=== PATIENT | male | born 1955 | race Caucasian/White ===

== ENCOUNTER → 2022-09-07 16:34 | Outpatient (BNVA) | payer OTHER, MEDICARE, SELFPAY | PROVIDERS: PCP Family Medicine; Visit Provider Family Medicine | DX: I10 Essential (primary) hypertension (principal); M62.838 Other muscle spasm; N52.9 Male erectile dysfunction, unspecified; Z23 Encounter for immunization; Z71.6 Tobacco abuse counseling | CPT/HCPCS: 80053; 80061; 84443; 85025 ==

== ENCOUNTER → 2023-03-10 13:00 | Outpatient (BNVA) | payer OTHER, MEDICARE, SELFPAY | PROVIDERS: PCP Family Medicine; Visit Provider Family Medicine | DX: I10 Essential (primary) hypertension (principal) | CPT/HCPCS: 80053; 80061; 84443 ==

== ENCOUNTER → 2023-05-18 10:15 | Outpatient (BNVA) | payer OTHER, MEDICARE, SELFPAY | PROVIDERS: PCP Family Medicine; Visit Provider Family Medicine | DX: R05.8 Other specified cough (principal) | CPT/HCPCS: 71046 ==

== ENCOUNTER → 2023-05-31 10:30 | Outpatient (BNVA) | payer OTHER, MEDICARE, SELFPAY | PROVIDERS: PCP Family Medicine; Visit Provider Family Medicine | DX: E78.2 Mixed hyperlipidemia (principal) | CPT/HCPCS: 80053; 80061 ==

== ENCOUNTER 2023-08-05 14:44 | Outpatient (CLI) | payer OTHER, MEDICARE, SELFPAY ==
--- NOTE | 2023-08-05 15:30 | US_ITS ---
WS: [id number] RIGHT UPPER QUADRANT ULTRASOUND HISTORY: R10.11 - Right upper quadrant pain COMPARISON: None available. Liver: 18.9 cm in length. Moderately enlarged liver. Coarse echotexture. No mass identified. No bile duct dilatation. Portal Vein: Normal hepatopetal flow with monophasic waveform. Gallbladder: Normally distended gallbladder. There is a tiny calcification within the wall of the gal lbladder. This tiny calcification could be a gallbladder wall calcification or calcified polyp. No sh adowing calculi. CBD: 0.3 cm Pancreas: Portions of the head and tail are obscured. The body is negative. Right kidney: 11.0 cm in length. Normal size and echogenicity. No hydronephrosis or mass. Aorta and IVC: Poorly visualized. No ascites. IMPRESSION: 1. No cholelithiasis or evidence for acute cholecystitis. 2. Tiny gallbladder wall calcification or calcified polyp. No shadowing cholelithiasis. 3. Moderate hepatic steatosis and hepatomegaly.
== END 2023-08-05 14:45 | disposition home or self-care (01) ==
PROVIDERS: PCP Family Medicine; Visit Provider Nurse Practitioner Family
DX: K76.0 Fatty (change of) liver, not elsewhere classified (principal); R16.0 Hepatomegaly, not elsewhere classified; K82.8 Other specified diseases of gallbladder; R10.11 Right upper quadrant pain
CPT/HCPCS: 76705

== ENCOUNTER → 2023-11-09 10:00 | Outpatient (BNVA) | payer OTHER, MEDICARE, SELFPAY | PROVIDERS: PCP Family Medicine; Visit Provider Family Medicine | DX: I10 Essential (primary) hypertension (principal); E78.2 Mixed hyperlipidemia; N52.9 Male erectile dysfunction, unspecified; M62.838 Other muscle spasm; Z68.38 Body mass index [BMI] 38.0-38.9, adult; M54.6 Pain in thoracic spine | CPT/HCPCS: 80053; 80061; 84443; 85025 ==

== ENCOUNTER → 2024-03-30 12:28 | Outpatient (BNVA) | payer OTHER, MEDICARE, SELFPAY | PROVIDERS: PCP Family Medicine; Visit Provider Family Medicine | DX: I10 Essential (primary) hypertension (principal); E78.2 Mixed hyperlipidemia; R53.83 Other fatigue; Z68.38 Body mass index [BMI] 38.0-38.9, adult; R04.0 Epistaxis | CPT/HCPCS: 80053; 80061; 82306; 82607; 83540; 84403; 84443; 85025 ==

== ENCOUNTER → 2024-11-26 09:24 | Outpatient (BNVA) | payer OTHER, MEDICARE, SELFPAY | PROVIDERS: PCP Nurse Practitioner Family; Visit Provider Nurse Practitioner Family | DX: R79.89 Other specified abnormal findings of blood chemistry (principal); I10 Essential (primary) hypertension; Z12.5 Encounter for screening for malignant neoplasm of prostate; Z68.38 Body mass index [BMI] 38.0-38.9, adult; R53.83 Other fatigue; Z79.899 Other long term (current) drug therapy | CPT/HCPCS: 80053; 80061; 82306; 82310; 82607; 83735; 83970; 84443; 84550; 85025; G0103 ==

== ENCOUNTER → 2025-01-02 08:42 | Outpatient (BNVA) | payer OTHER, MEDICARE, SELFPAY | PROVIDERS: PCP Nurse Practitioner Family; Visit Provider Nurse Practitioner Family | DX: R97.20 Elevated prostate specific antigen [PSA] (principal) | CPT/HCPCS: 84153 ==

== ENCOUNTER → 2025-03-06 09:28 | Outpatient (BNVA) | payer OTHER, MEDICARE, SELFPAY | PROVIDERS: PCP Nurse Practitioner Family; Visit Provider Nurse Practitioner Family | DX: E55.9 Vitamin D deficiency, unspecified (principal); Z68.38 Body mass index [BMI] 38.0-38.9, adult | CPT/HCPCS: 82306 ==